=== PATIENT | female | born 1990 | race Two or more races ===

== ENCOUNTER 2019-08-21 08:35 | Emergency (ER) | payer BC ==
[~2019-08-21] VITALS: Ht 162.6 cm; Wt 65.0 kg
--- NOTE | 2019-08-21 08:50 | NUR ---
BIB [facility] FOR DIZZINESS - PT 29 WEEKS . DENIES SYNCOPE, NO MED HX. REC'D 250CC NS, BS 143. HAS RECENTLY STARTED CHEWING TOBACCO. OB NOTIFIED. PA AT BEDSIDE. CALL LIGHT WITHIN REACH.
[2019-08-21] MEDS ORDERED: SODIUM CHLORIDE 0.9% 1,000ML IVBOLUS ONE (09:00)
--- NOTE | 2019-08-21 09:04 | NUR ---
OB NOTIFIED OF PTS ARRIVAL
[2019-08-21 09:14] LABS: BASOPHILS # (AUTO) 0.04 x10^3/uL (0-0.1); BASOPHILS % (AUTO) 0 % (0-1); EOSINOPHILS # (AUTO) 1.19 x10^3/uL (0-0.4); EOSINOPHILS % (AUTO) 12 % (1-7); LYMPHOCYTES # (AUTO) 1.15 x10^3/uL (1-3.4); LYMPHOCYTES % (AUTO) 12 % (22-44); MD NO; MEAN CORPUSCULAR HEMOGLOBIN 26.7 pg (27.0-34.8); MEAN CORPUSCULAR VOLUME 83.4 fL (80-100); MEAN PLATELET VOLUME 7.1 fL (7.4-10.4); MONOCYTES # (AUTO) 0.33 x10^3/uL (0.2-0.8); MONOCYTES % (AUTO) 3 % (2-9); NEUTROPHILS # (AUTO) 6.97 x10^3/uL (1.8-6.8); NEUTROPHILS % (AUTO) 72 % (42-75); PLATELET COUNT 322 x10^3/uL (130-400); RED CELL DISTRIBUTION WIDTH 14.1 % (9.6-15.2)
[2019-08-21 09:23] LABS: ALBUMIN 2.3 g/dL (3.4-5.0); ANION GAP 7 mmol/L (5-15); CALCIUM 7.4 mg/dL (8.5-10.1); CHLORIDE 108 mmol/L (98-107)
--- NOTE | 2019-08-21 09:52 | NUR ---
FHT 140
[2019-08-21 10:55] VITALS: BP 108/69
--- NOTE | 2019-08-21 11:23 | NUR ---
PT GIVEN CEREAL, CRACKERS AND PEANUT BUTTER. PT MOVED TO ROOM 13. REPORT TO VITO VALDES
--- NOTE | 2019-08-21 11:24 | NUR ---
REPORT FROM LUCIO GAN. PT TO BE D/C AFTER EATING MEALING.
== END 2019-08-21 12:00 | disposition home or self-care (01) ==
LOC: ED 09:12
DX: O99.332 Smoking (tobacco) complicating pregnancy, second trimester (principal); E16.2 Hypoglycemia, unspecified; R55 Syncope and collapse; Z3A.28 28 weeks gestation of pregnancy
CPT/HCPCS: 36415; 80048; 82040; 82962; 85025; 93005; 96360; 96361; 99284; J7030